=== PATIENT | male | born 2000 | race Caucasian/White ===

== ENCOUNTER 2019-11-02 01:11 | Emergency (ER) | payer OTHER, BC, SELFPAY ==
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
[2019-11-02 01:30] VITALS: BP 140/100; PULSE 90; RESP 20; TEMP 36.8; O2SAT 100
[2019-11-02 01:32] VITALS: BP 141/77; PULSE 82; RESP 18; TEMP 36.9; O2SAT 98
[2019-11-02 02:35] VITALS: BP 119/77; PULSE 80; RESP 18; O2SAT 99
== END 2019-11-02 02:36 | disposition home or self-care (01) ==
PROVIDERS: Emergency Provider Emergency Medicine
DX: S61.216A Laceration without foreign body of right little finger without damage to nail, initial encounter (principal); W26.0XXA Contact with knife, initial encounter
CPT/HCPCS: 12001; 99282

== ENCOUNTER 2020-03-28 07:15 | Emergency (ER) | payer OTHER, BC, SELFPAY ==
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
[2020-03-28 07:33] VITALS: BP 138/91; PULSE 107; RESP 14; TEMP 36.7; O2SAT 98
[2020-03-28 08:19] VITALS: BP 114/74; PULSE 100; RESP 12; O2SAT 99
== END 2020-03-28 08:21 | disposition home or self-care (01) ==
PROVIDERS: Emergency Provider Emergency Medicine; PCP Student in an Organized Health Care Education/Training Program
DX: S61.411A Laceration without foreign body of right hand, initial encounter (principal); F32.9 Major depressive disorder, single episode, unspecified; F90.9 Attention-deficit hyperactivity disorder, unspecified type; V28.4XXA Motorcycle driver injured in noncollision transport accident in traffic accident, initial encounter
CPT/HCPCS: 12001; 99282